=== PATIENT | female | born 2000 | race Caucasian/White ===

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

== ENCOUNTER 2019-03-17 02:32 | Emergency (ER) | payer SELFPAY ==
[~2019-03-17] VITALS: Ht 157.5 cm; Wt 59.1 kg
[~2019-03-17 02:32] MED LIST changes: +AMOX500C2 PO; +CARB15DR50 BOTH EARS; +CIPR500T4 PO; +IBUP-1542 PO; +MAG-19 PO; +ONDA4TAB14 PO; +PHEN-538 PO
[2019-03-17] MEDS ORDERED: SOD CHLORIDE 0.9% 500 ML IV STA (02:39)
[2019-03-17 02:46] VITALS: Ht 157.5 cm; Wt 59.1 kg
[2019-03-17] MEDS ORDERED: SOD CHLORIDE 0.9% 1,000 ML IV STA (03:42)
[2019-03-17] MEDS ORDERED: KETOROLAC 30 MG INJ IV STA (04:20)
--- NOTE | 2019-03-17 05:14 | ERD ---
ER Documentation Chief Complaint Chief Complaint RA39; VAG BLEED WITH EPISODE OF SYNCOPE HPI 18-year-old female previously healthy brought in by ambulance from home after having a syncopal episode while getting out of a taxi. The patient is currently on her menstrual period on day 2. Normally she does not bleed heavily. However today prior to getting into the taxi, she started having heavy vaginal bleeding. She denies any associated abdominal pain. However when she stood up out of the taxi, she became nauseated and dizzy and passed out hitting her face on the ground. Currently she has only mild facial pain but denies any other symptoms such as headache, vision disturbance, toothache, or nose pain. She is denying chest pain, shortness of breath, abdominal pain. However she is having heavy vaginal bleeding that is not usual for her. Patient does admit that she had sexual intercourse prior to her bleeding becoming heavy. She usually does not have sexual intercourse while on her period. She also complains of cold symptoms for about 1 week with persistent coughing as well. No associated fevers or phlegm production. ROS All systems reviewed and are negative except as per history of present illness. Medications Home Meds Active Scripts Ondansetron (Ondansetron Odt) 4 Mg Tab.rapdis, 4 MG PO Q6H PRN for NAUSEA AND/OR VOMITING, #20 TAB Prov:INDERJIT ABREU DO 09/19/18 Magaldrate/Simethicone* (Mylanta*) 355 Ml Susp, 30 ML PO QID PRN for GASTROINTESTINAL UPSET, #1 BOTTLE Prov:INDERJIT ABREU DO 09/19/18 Phenazopyridine Hcl* (Pyridium*) 200 Mg Tab, 200 MG PO TID PRN for URINARY PAIN, #6 TAB Prov:JO-ANN PRUITT NP 02/19/18 Ciprofloxacin Hcl* (Ciprofloxacin Hcl*) 500 Mg Tablet, 500 MG PO BID for 10 Days, TAB Prov:JO-ANN PRUITT NP 02/19/18 Ibuprofen* (Motrin*) 600 Mg Tab, 600 MG PO Q6, #30 TAB Prov:HUMBERTO ROBERTS PA-C 04/13/17 Amoxicillin* (Amoxicillin*) 500 Mg Cap, 500 MG PO TID for 10 Days, CAP Prov:HUMBERTO ROBERTS PA-C 04/13/17 Carbamide Peroxide* (Debrox*) 6.5% - 15 Ml Drops, 10 DROP BOTH EARS BID for 7 D ays, BOTTLE Prov:HUMBERTO ROBERTS PA-C 04/13/17 Sulfamethoxazole-Trimethoprim* (Bactrim* DS) 800-160 Mg Tab, 1 TAB PO BID for 10 Days, TAB Prov:BRAXTON CHAVIS PA-C 05/24/15 Cephalexin* (Keflex*) 500 Mg Capsule, 500 MG PO QID for 7 Days, CAP Prov:BRAXTON CHAVIS PA-C 05/24/15 Reported Medications [No Medications] No Conflict Check 02/12/10 Allergies Allergies: Coded Allergies: acetaminophen (Verified Allergy, Unknown, 09/19/18) PMhx/Soc Medical and Surgical Hx: pt denies Medical Hx, pt denies Surgical Hx History of Surgery: No Anesthesia Reaction: No Hx Neurological Disorder: No Hx Respiratory Disorders: No Hx Cardiac Disorders: No Hx Psychiatric Problems: No Hx Miscellaneous Medical Probl: No Hx Alcohol Use: No Hx Substance Use: No Hx Tobacco Use: No Smoking Status: Never smoker FmHx Family History: No diabetes Physical Exam Vitals Vital Signs Date Temp Pulse Resp B/P (MAP) Pulse Ox O2 O2 Flow FiO2 Time Delivery Rate 03/17/19 87 21 101/61 100 Room Air 05:00 (74) 03/17/19 95 20 110/59 100 Room Air 04:30 (76) 03/17/19 99 20 112/58 100 Room Air 04:00 (76) 03/17/19 92 14 105/69 100 Room Air 03:30 (81) 03/17/19 98.6 115 22 92/51 (65) 100 02:46 Physical Exam Const: No acute distress Head: Atraumatic Eyes: Normal Conjunctiva, EOMI, PERRLA, no nystagmus ENT: Dry mucous membranes. Small mucosal tear in the inner lower lip, partial-thickness. 3 mm partial-thickness well approximated laceration of the left chin below the lip. No dental or tongue injury. Facial bones otherwise nontender. No epistaxis. No nasal tenderness. Neck: Full range of motion. No meningismus. Resp: Clear to auscultation bilaterally Cardio: Tachycardic with regular rhythm, no murmurs. 2+ distal pulses in all 4 extremities Abd: Soft, non tender, non distended. Normal bowel sounds Pelvic: Normal external genitalia. Cervix normal without lacerations or lesions. No active bleeding from the cervical office. No vaginal mucosal ulcerations or any active bleeding Skin: No petechiae or rashes Back: No midline or flank tenderness Ext: No cyanosis, or edema Neur: Awake and alert oriented x3, cranial nerves intact, normal speech. Strength and sensations intact in all 4 extremities Psych: Normal Mood and Affect Result Diagram: 03/17/19 0256 Results 24 hrs Laboratory Tests Test 03/17/19 02:56 03/17/19 03:09 03/17/19 03:55 White Blood Count 20.1 10^3/ul Red Blood Count 4.34 10^6/ul Hemoglobin 12.7 g/dl Hematocrit 37.6 % Mean Corpuscular Volume 86.6 fl Mean Corpuscular Hemoglobin 29.3 pg Mean Corpuscular 33.8 g/dl Hemoglobin Concent Red Cell Distribution Width 11.8 % Platelet Count 262 10^3/UL Mean Platelet Volume 9.6 fl Immature Granulocytes % 0.600 % Neutrophils % 80.1 % Lymphocytes % 13.6 % Monocytes % 5.0 % Eosinophils % 0.4 % Basophils % 0.3 % Nucleated Red Blood Cells % 0.0 /100WBC Immature Granulocytes # 0.130 10^3/ul Neutrophils # 16.1 10^3/ul Lymphocytes # 2.7 10^3/ul Monocytes # 1.0 10^3/ul Eosinophils # 0.1 10^3/ul Basophils # 0.1 10^3/ul Nucleated Red Blood Cells # 0.0 10^3/ul Ethyl Alcohol Level < 10.0 mg/dl Bedside Glucose 127 mg/dL POC Beta HCG, Qualitative NEGATIVE Current Medications Medications Dose Sig/[place] Start Time Status Last (Trade) Ordered Route PRN Stop Time Admin Dose Reason Admin Sodium 500 ml @ Q1H STAT 03/17/19 DC 03/17/19 Chloride 500 mls/hr IV 02:39 03:02 03/17/19 03:38 Sodium 1,000 ml @ Q1H STAT 03/17/19 DC 03/17/19 Chloride 1,000 mls/hr IV 03:42 04:04 03/17/19 04:41 Ketorolac 30 mg ONCE STAT 03/17/19 DC 03/17/19 Tromethamine IV 04:20 04:32 (Toradol) 03/17/19 04:22 Procedures/MDM EMERGENT LABS AND DIAGNOSTIC STUDIES: Lab Results above were reviewed and interpreted by me. CBC: Leukocytosis, likely combination of acute viral upper respiratory infection and stress response. Doubt serious bacterial infection negative EtOH negative, no evidence of intoxication 12-lead EKG was interpreted by Silvio Horner MD: Sinus tachycardia at 111 bpm Normal axis Normal intervals No acute ST or T wave changes suggestive of acute ischemia or STEMI. Radiology Results as interpreted by Radiology below were reviewed by Maria De Jesus Horner MD: Chest x-ray shows no acute abnormalities Initial Nursing notes reviewed. Previous Medical Records requested via the Electronic Health Record. EMERGENCY DEPARTMENT COURSE / MEDICAL DECISION MAKING: Patient is presenting after syncopal episode with heavy vaginal bleeding. Vitals were notable for tachycardia upon arrival. She was given IV fluids and basic labs were done showing no evidence of anemia. She does have leukocytosis but I do believe that this is most likely a stress response in addition to her acute viral infection. Chest x-ray did not show evidence of pneumonia. I do not suspect acute surgical abdomen. Low suspicion for ruptured ectopic. Doubt pelvic infection. I suspect her heavy vaginal bleeding was likely secondary to her having intercourse. While she has been in the ER, the bleeding has slowed down significantly. EKG does not show arrhythmia or ischemia. Upon reevaluation, patient is ambulating with a steady gait in the ER and is no longer symptomatic. Her tachycardia has improved after IV fluids. I feel the patient is stable for discharge at this time with continued outpatient follow- up. Strict return precautions were discussed. I also discussed with her her leukocytosis which I do not believe is secondary to serious bacterial infection. Departure Diagnosis: Primary Impression: Heavy menses Menorrahagia type: with regular cycle Qualified Codes: N92.0 - Excessive and frequent menstruation with regular cycle Additional Impressions: Syncope Syncope type: unspecified Qualified Codes: R55 - Syncope and collapse Leukocytosis Leukocytosis type: unspecified Qualified Codes: D72.829 - Elevated white blood cell count, unspecified Condition: Stable EKLAZARO VORA MD Mar 17, 2019 05:14
[2019-03-17 05:56] VITALS: BP 98/46; PULSE 89; RESP 16
== END 2019-03-17 05:56 | disposition home or self-care (01) ==
LOC: E/R 02:32
DX: N92.0 Excessive and frequent menstruation with regular cycle (principal); R55 Syncope and collapse; D72.829 Elevated white blood cell count, unspecified
CPT/HCPCS: 36415; 71045; 80307; 81025; 82962; 85025; 93005; 96361; 96374; 99285; J1885; J7030; J7040

== ENCOUNTER 2019-07-09 17:50 | Emergency (ER) | payer SELFPAY ==
[~2019-07-09] VITALS: Ht 160 cm; Wt 67.6 kg
[~2019-07-09 17:50] MED LIST changes: +AMOX1TAB10 PO; +SACC250C PO; +TRAM50TA2 PO
[2019-07-09 17:56] VITALS: BP 140/77; PULSE 110; RESP 18; Ht 160 cm; Wt 67.6 kg
[2019-07-09] MEDS ORDERED: KETOROLAC 30 MG INJ IM STA (18:14)
[2019-07-09] MEDS ORDERED: DEXAMETHASONE 10 MG/ML 1 ML INJ IM ONE (18:30)
== END 2019-07-09 19:03 | disposition home or self-care (01) ==
LOC: FTE 17:50
DX: J02.9 Acute pharyngitis, unspecified (principal)
CPT/HCPCS: 81025; 96372; 99284; J1100; J1885

== ENCOUNTER 2019-07-11 03:16 | Inpatient (IN) | payer MEDICAID ==
[~2019-07-11] VITALS: Ht 157.5 cm; Wt 67.6 kg
[2019-07-11 03:18] VITALS: Ht 157.5 cm; Wt 67.6 kg
[2019-07-11] MEDS ORDERED: SODIUM CHLORIDE 0.9% 1L BAG IV* STA (03:21)
[2019-07-11] MEDS ORDERED: DEXAMETHASONE 10 MG/ML 1 ML INJ IV ONE (03:30)
[2019-07-11] MEDS ORDERED: AMPICILLIN/SULB 3 GM/NS (PMX) 100 ML IVPB ONE (03:30)
[2019-07-11] MEDS: KETOROLAC 15 MG INJ IV STA ×2 (03:40→03:57)
[2019-07-11] MEDS ORDERED: IOHEXOL 300MG/ML 150 ML BTL ONE (04:10)
[2019-07-11] MEDS ORDERED: SOD CHLORIDE 0.9% 100 ML ONE (04:10)
[2019-07-11] MEDS ORDERED: ONDANSETRON 4 MG INJ IV PRN ×2 (05:30→06:00)
[2019-07-11] MEDS: SOD CHLORIDE 0.9% 1,000 ML IV SCH ×2 (05:47→20:22)
[2019-07-11] MEDS ORDERED: ACETAMINOPHEN 650 MG SUPP PR PRN ×2 (06:00)
[2019-07-11] MEDS ORDERED: morphine 2 MG INJ IV PRN (06:00)
[2019-07-11] MEDS ORDERED: NACL 0.9% 3 ML SYG IV SCH (06:00)
[2019-07-11] MEDS ORDERED: AMPICILLIN/SULB 3 GM/NS (PMX) 100 ML IVPB SCH (08:00)
[2019-07-11] MEDS: DEXAMETHASONE 10 MG/ML 1 ML INJ IV SCH ×3 (10:23→20:22)
[2019-07-11 11:48] VITALS: BP 113/61; PULSE 96; RESP 18
[2019-07-11 15:06] VITALS: BP 116/74; PULSE 72; RESP 18
[2019-07-11] MEDS ORDERED: POTASSIUM CHLORIDE 100 ML IVPB ONE (17:30)
[2019-07-11] MEDS: AMPICILLIN/SULB 3 GM/NS (PMX) 100 ML IVPB SCH (17:45)
[2019-07-11 20:00] VITALS: BP 109/73; PULSE 67; RESP 18
[2019-07-11 23:57] VITALS: BP 112/56; PULSE 87; RESP 20
[2019-07-12] VITALS (16 sets, daily range): BP systolic 106–137; BP diastolic 57–81; PULSE 70–115; RESP 16–22
[2019-07-12] MEDS: AMPICILLIN/SULB 3 GM/NS (PMX) 100 ML IVPB SCH ×4 (00:09→17:31)
[2019-07-12] MEDS: PANTOPRAZOLE 40 MG INJ IV SCH (05:30)
[2019-07-12] MEDS: SOD CHLORIDE 0.9% 1,000 ML IV SCH ×2 (17:25→19:03)
[2019-07-12] MEDS ORDERED: EPINEPHrine 1 MG INJ IM STA (20:02)
[2019-07-12] MEDS ORDERED: LIDOCAINE 2% VISC 15 ML CUP PO PRN (20:30)
[2019-07-12] MEDS ORDERED: IOHEXOL 300MG/ML 150 ML BTL ONE (21:02)
[2019-07-12] MEDS ORDERED: SOD CHLORIDE 0.9% 100 ML ONE (21:02)
[2019-07-12] MEDS ORDERED: METOCLOPRAMIDE 10 MG INJ ONE (22:19)
[2019-07-12] MEDS ORDERED: MIDAZOLAM 1 MG/ML 2 ML INJ ONE (22:19)
[2019-07-12] MEDS ORDERED: SUCCINYLCHOLINE CHLORIDE 100 MG/5 ML SYG IV ONE (22:24)
[2019-07-12] MEDS ORDERED: PROPOFOL 20 ML ONE ×2 (22:24→22:56)
[2019-07-12] MEDS ORDERED: FENTAnyl 50 MCG/ML VIAL ONE (22:27)
[2019-07-12] MEDS ORDERED: FENTAnyl 50 MCG/ML VIAL IV PRN ×3 (22:30)
[2019-07-12] MEDS ORDERED: DIPHENHYDRAMINE 50 MG INJ IV PRN (22:30)
[2019-07-12] MEDS ORDERED: MEPERIDINE 25 MG INJ IV PRN (22:30)
[2019-07-12] MEDS ORDERED: HYDROmorphONE 1 MG/5 ML IV SYRINGE IV PRN ×3 (22:30)
[2019-07-12] MEDS ORDERED: ONDANSETRON 4 MG INJ IV PRN (22:30)
[2019-07-12] MEDS ORDERED: BUPIVACAINE 0.25% (MPF) 30 ML INJ ONE (22:42)
[2019-07-13] MEDS: AMPICILLIN/SULB 3 GM/NS (PMX) 100 ML IVPB SCH ×4 (00:12→17:51)
[2019-07-13 03:50] VITALS: BP 112/56; PULSE 114; RESP 18
[2019-07-13] MEDS: HYDROmorphONE 0.5 MG/0.5 ML SYG IV PRN ×4 (04:18→19:34)
[2019-07-13] MEDS: PANTOPRAZOLE 40 MG INJ IV SCH (05:04)
[2019-07-13 07:28] VITALS: BP 122/61; PULSE 106; RESP 18
[2019-07-13] MEDS: SOD CHLORIDE 0.9% 1,000 ML IV SCH ×2 (07:33→20:38)
[2019-07-13 11:24] VITALS: BP 117/71; PULSE 107; RESP 18
[2019-07-13 15:17] VITALS: BP 107/64; PULSE 87; RESP 18
[2019-07-13 20:00] VITALS: BP 117/69; PULSE 97; RESP 19
[2019-07-13] MEDS ORDERED: traMADol 50 MG TAB PO PRN (21:00)
[2019-07-13] MEDS: HYDROmorphONE 1 MG/ML SYG IV PRN (23:28)
[2019-07-14] VITALS: BP 106/61; PULSE 83; RESP 18
[2019-07-14] MEDS: AMPICILLIN/SULB 3 GM/NS (PMX) 100 ML IVPB SCH ×4 (01:04→18:12)
[2019-07-14 04:00] VITALS: BP 112/59; PULSE 20; RESP 20
[2019-07-14] MEDS: HYDROmorphONE 1 MG/ML SYG IV PRN ×5 (05:13→23:59)
[2019-07-14 07:22] VITALS: BP 101/58; PULSE 67; RESP 18
[2019-07-14] MEDS: FAMOTIDINE 20 MG INJ IV SCH ×2 (08:42→20:45)
[2019-07-14 11:16] VITALS: BP 120/75; PULSE 94; RESP 18
[2019-07-14 15:22] VITALS: BP 113/70; PULSE 84; RESP 18
[2019-07-14 19:31] VITALS: BP 124/65; PULSE 85; RESP 19
[2019-07-15 00:12] VITALS: BP 116/70; PULSE 76; RESP 19
[2019-07-15] MEDS: AMPICILLIN/SULB 3 GM/NS (PMX) 100 ML IVPB SCH ×3 (00:53→14:22)
[2019-07-15 03:47] VITALS: BP 109/67; PULSE 74; RESP 20
[2019-07-15] MEDS: HYDROmorphONE 1 MG/ML SYG IV PRN ×2 (04:10→10:25)
[2019-07-15 07:37] VITALS: BP 112/60; PULSE 75; RESP 18
[2019-07-15] MEDS: FAMOTIDINE 20 MG INJ IV SCH (08:34)
[2019-07-15 11:29] VITALS: BP 109/60; PULSE 66; RESP 18
[2019-07-15 15:35] VITALS: BP 107/64; PULSE 67; RESP 18
== END 2019-07-15 16:26 | disposition home or self-care (01) | DRG 854 ==
LOC: E/R 03:16 → 6WM 05:12 → EDBEDREQ 05:50
PROVIDERS: ADMIT Family Medicine; ATTEND Family Medicine
PROC: 0CBPXZZ Excision of Tonsils, External Approach (ICD-10-PCS; 2019-07-12)
PROC: 0C9PXZZ Drainage of Tonsils, External Approach (ICD-10-PCS; principal; 2019-07-12 22:30)
DX: A41.9 Sepsis, unspecified organism (principal); J36 Peritonsillar abscess
CPT/HCPCS: 36415; 70491; 71045; 80048; 80053; 81001; 81003; 81025; 83036; 83605; 83735; 84100; 84484; 85025; 85610; 85730; 87086; 87880; 88304; 93005; 96374; 96375; C9113; J0171; J0295; J1100; J1170; J1885; J2175; J2250; J2270; J2405; J2765; J3010; J3480; J7030; Q9967